=== PATIENT | male | born 1955 | race Caucasian/White ===

== ENCOUNTER → 2017-12-07 | Outpatient (CLI) | payer OTHER ==
[~2017-12-07] MED LIST: OMNIPAQUE 350 MG/ML, 150 ML BOTTLE ONE
[2017-12-07 13:10] LABS: CREATININE 0.81 mg/dL (0.7-1.3)
== END | disposition home or self-care (01) ==
LOC: RAD 12:17
PROVIDERS: ATTEND Surgery
DX: K40.90 Unilateral inguinal hernia, without obstruction or gangrene, not specified as recurrent (principal); R59.9 Enlarged lymph nodes, unspecified; E04.1 Nontoxic single thyroid nodule; K80.20 Calculus of gallbladder without cholecystitis without obstruction
CPT/HCPCS: 36415; 71260; 74177; 82565; Q9967